=== PATIENT | male | born 2000 | race African-American/Black ===

== ENCOUNTER 2023-12-16 12:36 | Inpatient (IN) | payer OTHER ==
[2023-12-16 13:50] VITALS: BMI 24.5
[2023-12-16] MEDS ORDERED: MAG HYDROX/AL HYDROX/SIMETH 30 ML UNIT-DOSE CUP PO PRN (15:35)
[2023-12-16] MEDS ORDERED: ONDANSETRON *ODT* 4 MG TABLET SL PRN (15:35)
[2023-12-16] MEDS ORDERED: IBUPROFEN 600 MG TABLET (FP) PO PRN (15:35)
[2023-12-16] MEDS ORDERED: guaiFENesin 600 MG TABLET.ER (FP) PO PRN (15:35)
[2023-12-16] MEDS ORDERED: IBUPROFEN 400 MG TABLET (FP) PO PRN (15:35)
[2023-12-16] MEDS ORDERED: BENZONATATE 200 MG CAPSULE PO PRN (15:35)
[2023-12-16] MEDS ORDERED: DICYCLOMINE HCL 10 MG CAPSULE PO PRN (15:35)
[2023-12-16] MEDS ORDERED: POLYETHYLENE GLYCOL (HEALTHYLAX) 3350 17 GM PACKET PO PRN (15:35)
[2023-12-16] MEDS ORDERED: BISMUTH SUBSALICYLATE 524 MG/30 ML PO PRN (15:35)
[2023-12-16] MEDS ORDERED: NALOXONE HCL (KLOXXADO) 8 MG SPRAY NS PRN (15:35)
[2023-12-16] MEDS ORDERED: MAGNESIUM HYDROX 2400MG/30ML ORAL SUSPENSION 30 ML CUP PO PRN (15:35)
[2023-12-16] MEDS ORDERED: ACETAMINOPHEN 325 MG TABLET (FP) PO PRN (15:35)
[2023-12-16] MEDS ORDERED: NICOTINE POLACRILEX 2 MG GUM BUC PRN (15:35)
[2023-12-16] MEDS ORDERED: LOPERAMIDE HCL 2 MG CAPSULE PO PRN (15:35)
[2023-12-16] MEDS ORDERED: hydrOXYzine PAMOATE 25 MG CAPSULE (FP) PO PRN (15:35)
[2023-12-16] MEDS ORDERED: NALOXONE HCL 0.4 MG/ML VIAL IM PRN (15:35)
[2023-12-16] MEDS ORDERED: BENZOCAINE/MENTHOL (CHLORASEPTIC ) LOZENGE MM PRN (15:35)
[2023-12-16] MEDS ORDERED: ALBUTEROL SO4 HFA INHALER IH PRN (15:52)
[2023-12-16] MEDS ORDERED: methaDONE HCL 10 MG TABLET (FOR DETOX USE ONLY) ONE (17:55)
[2023-12-16] MEDS ORDERED: cloNIDine HCL 0.1 MG TABLET ONE (17:56)
[2023-12-16] MEDS: cloNIDine HCL 0.1 MG TABLET PO SCH (18:02)
[2023-12-16] MEDS: methaDONE HCL 10 MG TABLET (FOR DETOX USE ONLY) PO ONE (18:02)
[2023-12-16] MEDS: THIAMINE 100 MG TABLET PO SCH (22:19)
[2023-12-16] MEDS: MELATONIN 5 MG TABLETS PO SCH (22:19)
[2023-12-16] MEDS: BUPRENORPHINE/NALOXONE 0.5 MG/0.125 MG FILM SL ONE (22:19)
[2023-12-17] MEDS: BUPRENORPHINE/NALOXONE 0.5 MG/0.125 MG FILM SL SCH (09:45)
[2023-12-17] MEDS: NICOTINE 7 MG/24 HOURS TOPICAL PATCH TD SCH (09:46)
[2023-12-17] MEDS: PRENATAL VITAMINS W/ FOLIC ACID TABLET (FP) PO SCH (09:46)
[2023-12-17 12:15] LABS: HEMATOCRIT 39.5 % (35.4-49); HEMOGLOBIN 13.5 GM/dL (11.7-16.9); MCH 28.4 pg (25.7-33.7); MCHC 34.1 g/dl (32.0-35.9); MEAN CELL VOLUME 83.1 fl (80-96); MEAN PLT VOLUME 7.5 fl (7.5-11.1); PLATELET COUNT 322 10^3/uL (134-434); RBC 4.76 M/mm3 (4.00-5.60); RDW 14.5 % (11.9-15.9); WHITE BLOOD COUNT 6.2 K/mm3 (4.0-10.0)
[2023-12-17 12:46] LABS: CHLORIDE 103 mmol/L (98-107); POTASSIUM 4.3 mmol/L (3.5-5.1); SODIUM 139 mmol/L (136-145)
[2023-12-17 13:06] LABS: ALBUMIN 3.6 g/dl (3.4-5.0); ANION GAP 6 mmol/L (4-13); BLOOD UREA NITROGEN 9.9 mg/dL (7-18); CALCIUM 9.4 mg/dL (8.5-10.1); CO2 30 mmol/L (21-32); GLUCOSE,RANDOM 93 mg/dL (74-106)
[2023-12-17 13:09] LABS: SGOT/AST 14 U/L (15-37); SGPT/ALT 29 U/L (13-61)
[2023-12-17 13:10] LABS: CREATININE 0.9 mg/dL (0.55-1.3)
[2023-12-17 13:11] LABS: ALK PHOS 125 U/L (45-117); BILIRUBIN,TOTAL 0.3 mg/dL (0.2-1); TOT PROT 6.7 g/dl (6.4-8.2)
[2023-12-18] MEDS: methaDONE HCL 10 MG TABLET (FOR DETOX USE ONLY) PO ONE (10:12)
[2023-12-18] MEDS: BUPRENORPHINE/NALOXONE 2 MG/0.5 MG FILM PACKET SL SCH (10:13)
[2023-12-18] MEDS: LIDOCAINE 5% TOPICAL PATCH TP SCH (15:59)
[2023-12-18] MEDS: LIDOCAINE PATCH REMOVAL MC SCH (22:21)
[2023-12-19] MEDS: METHOCARBAMOL 500 MG TABLET PO PRN (09:50)
[2023-12-19] MEDS: BUPRENORPHINE/NALOXONE 4 MG/1 MG FILM PACKET SL SCH (09:51)
[2023-12-20] MEDS: methaDONE HCL 10 MG TABLET (FOR DETOX USE ONLY) PO ONE (10:17)
[2023-12-20] MEDS: BUPRENORPHINE/NALOXONE 8 MG/2 MG FILM PACKET SL SCH (10:18)
[2023-12-21] MEDS: BUPRENORPHINE/NALOXONE 8 MG/2 MG FILM PACKET SL SCH (07:12)
[2023-12-21] MEDS ORDERED: BUPRENORPHINE/NALOXONE 8 MG/2 MG FILM PACKET SL ONE (08:45)
[2023-12-21] MEDS: BUPRENORPHINE/NALOXONE 8 MG/2 MG FILM PACKET SL ONE (09:04)
[2023-12-21] MEDS ORDERED: BUPRENORPHINE/NALOXONE 8 MG/2 MG FILM PACKET SL SCH (10:00)
[2023-12-21 10:02] VITALS: RESP 18
[2023-12-21 13:08] VITALS: BP 115/65; PULSE 68; TEMP 97.5
== END 2023-12-21 14:33 | disposition other institution (70) | DRG 773 ==
LOC: YASAS 12:36 → Y6N 17:47
PROVIDERS: ADMIT Allergy & Immunology; ATTEND Surgery
PROC: HZ2ZZZZ Detoxification Services for Substance Abuse Treatment (ICD-10-PCS; principal; 2023-12-16)
DX: F11.23 Opioid dependence with withdrawal (principal); F13.20 Sedative, hypnotic or anxiolytic dependence, uncomplicated; F14.20 Cocaine dependence, uncomplicated; F17.210 Nicotine dependence, cigarettes, uncomplicated; J45.909 Unspecified asthma, uncomplicated
CPT/HCPCS: 36415; 80053; 80307; 85027; 86780; 87811

== ENCOUNTER 2023-12-21 14:37 | Inpatient (IN) | payer OTHER ==
[2023-12-21] MEDS ORDERED: NALOXONE HCL 0.4 MG/ML VIAL IVPUSH PRN (15:48)
[2023-12-21] MEDS ORDERED: POLYETHYLENE GLYCOL (HEALTHYLAX) 3350 17 GM PACKET PO PRN (15:48)
[2023-12-21] MEDS ORDERED: guaiFENesin 600 MG TABLET.ER (FP) PO PRN (15:48)
[2023-12-21] MEDS ORDERED: BENZOCAINE/MENTHOL (CHLORASEPTIC ) LOZENGE MM PRN (15:48)
[2023-12-21] MEDS ORDERED: METHOCARBAMOL 500 MG TABLET PO PRN (15:48)
[2023-12-21] MEDS ORDERED: MAG HYDROX/AL HYDROX/SIMETH 30 ML UNIT-DOSE CUP PO PRN (15:48)
[2023-12-21] MEDS ORDERED: IBUPROFEN 400 MG TABLET (FP) PO PRN (15:48)
[2023-12-21] MEDS ORDERED: MAGNESIUM HYDROX 2400MG/30ML ORAL SUSPENSION 30 ML CUP PO PRN (15:48)
[2023-12-21] MEDS ORDERED: NALOXONE (NYS OPIOID OVERDOSE PROGRAM) 4 MG/0.1 ML SPRAY NS PRN (15:48)
[2023-12-21] MEDS ORDERED: BENZONATATE 200 MG CAPSULE PO PRN (15:48)
[2023-12-21] MEDS ORDERED: LOPERAMIDE HCL 2 MG CAPSULE PO PRN (15:48)
[2023-12-21] MEDS ORDERED: ALBUTEROL SO4 HFA INHALER IH PRN (15:50)
[2023-12-21] MEDS: LIDOCAINE PATCH REMOVAL MC SCH (21:45)
[2023-12-21] MEDS: MELATONIN 5 MG TABLETS PO SCH (21:45)
[2023-12-21] MEDS: THIAMINE 100 MG TABLET PO SCH (21:45)
[2023-12-22] MEDS: BUPRENORPHINE/NALOXONE 8 MG/2 MG FILM PACKET SL SCH (06:28)
[2023-12-22] MEDS ORDERED: BUPRENORPHINE/NALOXONE 8 MG/2 MG FILM PACKET SL SCH (10:00)
[2023-12-22] MEDS: LIDOCAINE 5% TOPICAL PATCH TP SCH (10:05)
[2023-12-22] MEDS: PRENATAL VITAMINS W/ FOLIC ACID TABLET (FP) PO SCH (10:07)
[2023-12-22] MEDS: NICOTINE 14 MG/24 HOURS TOPICAL PATCH TD SCH (10:07)
[2023-12-22 13:18] LABS: HIV INTERPRETATION NEGATIVE (NEGATIVE)
[2023-12-22] MEDS: NICOTINE POLACRILEX 4 MG LOZENGE BC PRN (13:34)
[2023-12-22] MEDS: hydrOXYzine PAMOATE 25 MG CAPSULE (FP) PO PRN (21:15)
[2023-12-23] MEDS: MELATONIN 5 MG TABLETS PO SCH (21:08)
[2023-12-26] MEDS: MIRTAZAPINE 15 MG TABLET (FP) PO SCH (21:17)
[2023-12-26] MEDS ORDERED: SUVOREXANT 10 MG TABLET PO PRN (22:00)
[2023-12-29] MEDS: BUPRENORPHINE/NALOXONE 4 MG/1 MG FILM PACKET SL SCH (10:03)
[2023-12-29] MEDS ORDERED: BUPRENORPHINE/NALOXONE 4 MG/1 MG FILM PACKET SL SCH (10:45)
[2023-12-30] MEDS: BUPRENORPHINE/NALOXONE 4 MG/1 MG FILM PACKET SL SCH (06:14)
[2023-12-31] MEDS: BUPRENORPHINE/NALOXONE 2 MG/0.5 MG FILM PACKET SL SCH (06:05)
[2023-12-31] MEDS: NICOTINE POLACRILEX 4 MG GUM BUC PRN (10:12)
[2024-01-03] MEDS: IBUPROFEN 600 MG TABLET (FP) PO PRN (06:00)
[2024-01-03] MEDS: MIRTAZAPINE 30 MG TABLET PO SCH (21:30)
[2024-01-03] MEDS: ACETAMINOPHEN 325 MG TABLET (FP) PO PRN (21:30)
[2024-01-04] MEDS ORDERED: methaDONE HCL 40 MG DISPERSABLE TABLET PO SCH (06:30)
[2024-01-04] MEDS: BACLOFEN 10 MG TABLET (FP) PO SCH (15:45)
[2024-01-04] MEDS: AMOX TR/POT CLAV 500MG/125MG TABLETS (FP) PO SCH (17:47)
[2024-01-05] MEDS: BUPRENORPHINE/NALOXONE 4 MG/1 MG FILM PACKET SL SCH (06:10)
[2024-01-05] MEDS: AMMONIUM LACTATE 12% LOTION 225 GM BOTTLE TP PRN (10:00)
[2024-01-18 06:46] VITALS: BP 139/91; PULSE 88; RESP 20; TEMP 97.5
== END 2024-01-18 09:30 | disposition home or self-care (01) | DRG 772 ==
LOC: YASAS 14:37 → Y3W 14:39
PROVIDERS: ADMIT Allergy & Immunology; ATTEND Psychiatry & Neurology Pain Medicine
PROC: HZ42ZZZ Group Counseling for Substance Abuse Treatment, Cognitive-Behavioral (ICD-10-PCS; principal; 2023-12-21)
DX: F11.20 Opioid dependence, uncomplicated (principal); F13.20 Sedative, hypnotic or anxiolytic dependence, uncomplicated; F14.20 Cocaine dependence, uncomplicated; F17.210 Nicotine dependence, cigarettes, uncomplicated; F19.282 Other psychoactive substance dependence with psychoactive substance-induced sleep disorder; F19.280 Other psychoactive substance dependence with psychoactive substance-induced anxiety disorder; F19.24 Other psychoactive substance dependence with psychoactive substance-induced mood disorder; J45.909 Unspecified asthma, uncomplicated; K04.7 Periapical abscess without sinus
CPT/HCPCS: 36415; 87389; 93005; 93010; J0475

== ENCOUNTER 2024-03-16 12:54 | Inpatient (IN) | payer OTHER ==
[2024-03-16 13:38] VITALS: BMI 24.1
[2024-03-16] MEDS ORDERED: MAGNESIUM HYDROX 2400MG/30ML ORAL SUSPENSION 30 ML CUP PO PRN (15:31)
[2024-03-16] MEDS ORDERED: MAG HYDROX/AL HYDROX/SIMETH 30 ML UNIT-DOSE CUP PO PRN (15:31)
[2024-03-16] MEDS ORDERED: DICYCLOMINE HCL 10 MG CAPSULE PO PRN (15:31)
[2024-03-16] MEDS ORDERED: BENZONATATE 200 MG CAPSULE PO PRN (15:31)
[2024-03-16] MEDS ORDERED: NICOTINE POLACRILEX 2 MG GUM BUC PRN (15:31)
[2024-03-16] MEDS ORDERED: IBUPROFEN 400 MG TABLET (FP) PO PRN (15:31)
[2024-03-16] MEDS ORDERED: IBUPROFEN 600 MG TABLET (FP) PO PRN (15:31)
[2024-03-16] MEDS ORDERED: NALOXONE (NARCAN) HCL 4 MG/0.1 ML SPRAY NS PRN (15:31)
[2024-03-16] MEDS ORDERED: BISMUTH SUBSALICYLATE 524 MG/30 ML PO PRN (15:31)
[2024-03-16] MEDS ORDERED: BENZOCAINE/MENTHOL (CHLORASEPTIC ) LOZENGE MM PRN (15:31)
[2024-03-16] MEDS ORDERED: NALOXONE HCL 0.4 MG/ML VIAL IM PRN (15:31)
[2024-03-16] MEDS ORDERED: NICOTINE POLACRILEX 2 MG LOZENGE BC PRN (15:31)
[2024-03-16] MEDS ORDERED: POLYETHYLENE GLYCOL (HEALTHYLAX) 3350 17 GM PACKET PO PRN (15:31)
[2024-03-16] MEDS ORDERED: ONDANSETRON *ODT* 4 MG TABLET SL PRN (15:31)
[2024-03-16] MEDS ORDERED: LOPERAMIDE HCL 2 MG CAPSULE PO PRN (15:31)
[2024-03-16] MEDS ORDERED: guaiFENesin 600 MG TABLET.ER (FP) PO PRN (15:31)
[2024-03-16] MEDS ORDERED: ACETAMINOPHEN 325 MG TABLET (FP) PO PRN (15:31)
[2024-03-16] MEDS: THIAMINE 100 MG TABLET PO SCH (22:38)
[2024-03-16] MEDS: MELATONIN 5 MG TABLETS PO SCH (22:38)
[2024-03-17] MEDS: PRENATAL VITAMINS W/ FOLIC ACID TABLET (FP) PO SCH (10:56)
[2024-03-17] MEDS: METHOCARBAMOL 500 MG TABLET PO PRN (11:56)
[2024-03-17] MEDS: diazePAM 5 MG TABLET PO SCH (11:56)
[2024-03-17] MEDS: methaDONE HCL 10 MG TABLET (FOR DETOX USE ONLY) PO ONE (11:57)
[2024-03-18] MEDS: hydrOXYzine PAMOATE 25 MG CAPSULE (FP) PO PRN (10:11)
[2024-03-19] MEDS: diazePAM 5 MG TABLET PO SCH (05:44)
[2024-03-19] MEDS: methaDONE HCL 10 MG TABLET (FOR DETOX USE ONLY) PO ONE (09:30)
[2024-03-19] MEDS: cloNIDine HCL 0.1 MG TABLET PO PRN (09:31)
[2024-03-19] MEDS: diazePAM 5 MG TABLET PO PRN (17:01)
[2024-03-20] MEDS: diazePAM 5 MG TABLET PO SCH (05:37)
[2024-03-21] MEDS: diazePAM 5 MG TABLET PO ONE ×2 (06:06→14:01)
[2024-03-21] MEDS ORDERED: ALBUTEROL SO4 HFA INHALER IH PRN (09:21)
[2024-03-21] MEDS: methaDONE HCL 10 MG TABLET (FOR DETOX USE ONLY) PO ONE (09:48)
[2024-03-21 20:46] VITALS: RESP 16
[2024-03-22] MEDS: diazePAM 5 MG TABLET PO ONE (05:32)
[2024-03-22 06:33] VITALS: TEMP 97.5
[2024-03-22 08:52] VITALS: BP 125/75; PULSE 61
== END 2024-03-22 10:40 | disposition home or self-care (01) | DRG 773 ==
LOC: YASAS 12:54 → Y6N 16:50
PROVIDERS: ADMIT Allergy & Immunology; ATTEND Family Medicine Addiction Medicine
PROC: HZ2ZZZZ Detoxification Services for Substance Abuse Treatment (ICD-10-PCS; principal; 2024-03-16)
DX: F11.23 Opioid dependence with withdrawal (principal); F13.230 Sedative, hypnotic or anxiolytic dependence with withdrawal, uncomplicated; F14.20 Cocaine dependence, uncomplicated; F12.20 Cannabis dependence, uncomplicated; F17.210 Nicotine dependence, cigarettes, uncomplicated; F41.9 Anxiety disorder, unspecified; J45.909 Unspecified asthma, uncomplicated
CPT/HCPCS: 80305